=== PATIENT | male | born 1950 | race Caucasian/White ===

== ENCOUNTER → 2021-12-03 | Outpatient (CLI) | payer OTHER ==
[~2021-12-03] MED LIST: AMBEREN; IBUPROFEN 800800 M1 PO
--- NOTE | 2021-12-05 08:20 | CARD ---
[address] [address] CARDIAC CATH REPORT Name: IMELDAVIRGINIA N Room: [facility]#: [id number] Admission: 12/03/21 Attend Phys: Elian Veloz MD Discharge: Date of : 48 Report #: [id number] THIS REPORT FOR: cc: Osorio Mueller Vincent R. DO Blick, David R. MD FAC ~ cc: Elian Veloz MD DATE OF SERVICE: 12/03/2021 EXERCISE STRESS TEST INDICATION: Stress test requested in this patient with a history of shortness of breath. PROCEDURE: The patient was exercised on a Mick protocol stress test without imaging. FINDINGS: The patient had a pretest heart rate of 71, blood pressure of 133/72. The patient was able to exercise for 8 minutes 59 seconds achieving a peak heart rate of 156, which is greater than 90% of maximum predicted heart rate for the patient's age. Peak blood pressure was 236/80. In recovery, the patient had a heart rate of 92, blood pressure 159/84. The patient denied chest pain with exercise, which was terminated because of fatigue. The patient's resting ECG showed a normal sinus rhythm with no ST or T-wave changes. With exercise, there was a rare PVC noted. The patient did develop J-point depression with exercise and at peak exercise, there was no significant ST segment depression at 80 milliseconds after the J-point. IMPRESSION: 1. Clinical response, nonischemic. 2. ECG response, nonischemic. 3. Exercise capacity, superior. 4. This exercise stress test was felt to represent a low risk for predicting future cardiac events. <ELECTRONICALLY SIGNED> By: John Mason MD, [facility] 12/05/21 0820 [id number] 1900Dacora Mason MD, FAC /nt
== END ==
LOC: M.CRD 14:53
PROVIDERS: ATTEND Internal Medicine Cardiovascular Disease
DX: R06.00 Dyspnea, unspecified (principal)

== ENCOUNTER → 2021-12-04 | Outpatient (CLI) | payer OTHER | LOC: M.CT 11:49 | PROVIDERS: ATTEND Internal Medicine Cardiovascular Disease | DX: Z13.6 Encounter for screening for cardiovascular disorders (principal); I25.10 Atherosclerotic heart disease of native coronary artery without angina pectoris ==